=== PATIENT | female | born 1985 | race Caucasian/White ===

== ENCOUNTER 2017-10-16 08:00 | Emergency (ER) | payer OTHER ==
[2017-10-16] MEDS ORDERED: Pepcid 20 MG VIAL IV ONE ×2 (08:48→09:00)
[2017-10-16] MEDS ORDERED: Lactated Ringers 1,000 ML IV ONE ×2 (08:50→09:00)
[2017-10-16] MEDS ORDERED: Zyprexa Zydis 5 MG PO ONE ×2 (08:50→08:59)
[2017-10-16 08:58] LABS: BASOPHIL % 0.3 % (0.0-0.4); Basophil (Absolute #) 0.03 (0-0.4); Eosinophil % 2.3 % (0.00-5.0); Eosinophil (Absolute #) 0.22 (0-0.5); Granulocyte Absolute (ANC) 4.84 (1.4-6.9); Granulocytes % 50.5 % (36.0-66.0); Hematocrit 43.6 % (35-47); Hemoglobin 14.8 gm/dl (12.0-16.0); Lymphocytes % 39.6 % (24.0-44.0); Mean Cell Volume 87.4 fl (78-100); Mean Corpuscular Hemoglobin 29.7 pg (26-32); Mean Corpuscular Hgb Concent. 33.9 g/dl (32-36); Mean Platelet Volume 10.9 fl (6-9.5); Monocytes % 7.3 % (0.0-12.0); Platelet Count 269 K/mm3 (150-450); Red Blood Count 4.99 M/mm3 (4.1-5.4); Red Cell Distribution Width 12.4 % (11.5-14.0); White Blood Count 9.6 K/mm3 (4.0-10.5)
--- NOTE | 2017-10-16 09:13 | ERPHSYRPT ---
- History of Present Illness Time Seen by Provider: 10/16/17 08:28 Source: patient, family (boyfriend Mickey) Patient Subjective Stated Complaint: Pt states "I Have had abdominal pain for months. I hurt all over. I have had scans and they cannot find anything. I also have worms that come out of my eyes and my stomach was moving yesterday, I think I have a tapeworm." Triage Nursing Assessment: Pt alert and oriented X 3, skin pwd. PT ambulates with shakey legs, assisted by two people. Pt anxious, holding her abdomen. 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 She has abd pain, for one year. In past 1 day it is much worse. Diffuse. Diarrhea yesterday. No vomiting. No fever or chills. She has had menses for 2 months- took depo provera prior to that. Normal urination but intermittent UTI. She reports long hx of illness during the past 1 1/2 years. She has intermittent abd pain. She feels worms crawling in her abdomen. She has had worms come out of her eyes leaving red spots. She has intermittent weakness and can not walk at times. Sometimes her feet turn delaney. She has seen many providers. She has had many tests. She saw neurologist Dr Angel Perez who did EMG and CT scan. She saw Dr Nelson who did a breast biopsy. She saw psychiatry at [facility]. She saw a Gas Systems Worker. She has seen other doctors and has never gotten any answers. She feels like they don't listen to her. At one time she has low K and briefly took potassium tablets. She had prior BTL 10 years ago. She had a negative stool O&P. She had positive CECILIA. She had remote colonoscopy. She has intermittent blood in stools. She lives with boyfriend Mickey. She has 2 children at home she tries to care for ages 9, 10. Smoker. Surg: Colonoscopy, BTL ALL: Amoxil Timing/Duration: today, yesterday Severity: severe Allergies/Adverse Reactions: amoxicillin Allergy (Severe, Verified 10/16/17 08:19) Swelling Penicillins Allergy (Severe, Verified 10/16/17 08:18) Swelling Home Medications: No Reportable Medications [No Reported Medications] 03/16/18 [History] Hx Tetanus, Diphtheria Vaccination/Date Given: No Hx Influenza Vaccination/Date Given: No Hx Pneumococcal Vaccination/Date Given: No Immunizations Up to Date: Yes - Review of Systems Constitutional: Fatigue, Malaise, Weakness, Weight Loss, No Fever, No Chills Eyes: Other (worms crawls out of her eye), No Vision Changes Ears, Nose, & Throat: No Symptoms Respiratory: No Cough, No Dyspnea Cardiac: No Chest Pain Abdominal/Gastrointestinal: Abdominal Pain, Diarrhea (intermittent), No Vomiting Genitourinary Symptoms: Dysuria (frequent UTI), Vaginal Bleeding (2 months menses), Vaginal Itching (intermittent camilo), No Musculoskeletal: Back Pain Skin: Rash Neurological: Focal Weakness, Headache, Parasthesia Psychological: Anxiety All Other Systems: Reviewed and Negative - Past Medical History Neurological History: No Pertinent History ENT History: No Pertinent History Cardiac History: No Pertinent History Respiratory History: No Pertinent History Endocrine Medical History: No Pertinent History Musculoskeletal History: Fibromyalgia GI Medical History: No Pertinent History History: No Pertinent History Psycho-Social History: Anxiety, Depression, Panic Disorder Female Reproductive Disorders: No Pertinent History - Past Surgical History Past Surgical History: Yes Other Surgical History: tubal - Social History Smoking Status: Current every day smoker How long have you smoked: 2 years Exposure to second hand smoke: Yes Drug Use: none Patient Lives Alone: No (has not been able to work for 1 1/2 years) - Female History Hx Last Menstrual Period: bleeding for past 2 months Hx Now: (HCG pending) - Nursing Vital Signs Nursing Vital Signs: Initial Vital Signs Temperature 97.8 F 10/16/17 08:08 Pulse Rate 104 H 10/16/17 08:08 Respiratory Rate 18 10/16/17 08:08 Blood Pressure 138/88 10/16/17 08:08 O2 Sat by Pulse Oximetry 100 10/16/17 08:08 Pain Scale Pain Intensity 2 - Physical Exam General Appearance: alert Eye Exam: PERRL/EOMI Ears, Nose, Throat Exam: moist mucous membranes, No pharyngeal erythema Neck Exam: normal inspection, non-tender, supple Respiratory Exam: normal breath sounds, lungs clear Cardiovascular Exam: regular rate/rhythm, No murmur Gastrointestinal/Abdomen Exam: soft, tenderness (diffuse) Pelvic Exam: deferred Back Exam: normal inspection Extremity Exam: normal inspection, normal range of motion, No calf tenderness, No pedal edema Neurologic Exam: alert, oriented x 3, cooperative, manager ems II-XII nml as tested, sensation nml, other (intermittently tearful and anxious), No motor deficits Skin Exam: warm, dry, No rash SpO2 Interpretation: normal SpO2: 100 Oxygen Delivery: Room Air - Course Nursing assessment & vital signs reviewed: Yes - CT Exams abd/pelvis CT Interpretation: Negative (small umbilical hernia), Tele-radiologist Report Ordered Tests: Active Orders 24 hr Category Date Time Status Cath for Specimen-Straight STAT Care 10/16/17 08:49 Active IV Insertion STAT Care 10/16/17 08:48 Active ABDOMEN AND PELVIS W CONTRAST [CT] Stat Exams 10/16/17 08:49 Completed CBC W DIFF Stat Lab 10/16/17 08:10 Completed CMP Stat Lab 10/16/17 08:10 Completed CULTURE,URINE Stat Lab 10/16/17 08:49 Received HCG QUALITATIVE,SERUM Stat Lab 10/16/17 08:10 Completed LIPASE Stat Lab 10/16/17 08:10 Completed UA W/ MICROSCOPIC Stat Lab 10/16/17 08:49 Completed Urine Triage Profile Stat Lab 10/16/17 08:51 Completed Medication Summary Discontinued Medications Generic Name Dose Route Start Last Admin Trade Name Freq PRN Reason Stop Dose Admin Famotidine 20 mg 10/16/17 08:48 10/16/17 09:04 Pepcid 20 Mg Vial IV 10/16/17 08:49 20 mg STAT ONE Administration Famotidine Confirm 10/16/17 09:00 Pepcid 20 Mg Vial Administered 10/16/17 09:01 Dose 20 mg IV .STK-MED ONE Lactated Ringer's 1,000 mls @ 999 mls/hr 10/16/17 08:50 10/16/17 09:04 Lactated Ringers IV 10/16/17 09:50 999 mls/hr .Q1H1M ONE Administration Lactated Ringer's Confirm 10/16/17 09:00 Lactated Ringers Administered 10/16/17 09:01 Dose 1,000 mls @ ud IV .STK-MED ONE Olanzapine 5 mg 10/16/17 08:50 10/16/17 09:04 Zyprexa Zydis 5 Mg PO 10/16/17 08:51 5 mg STAT ONE Administration Olanzapine Confirm 10/16/17 08:59 Zyprexa Zydis 5 Mg Administered 10/16/17 09:00 Dose 5 mg PO .STK-MED ONE Lab/Rad Data: Laboratory Result Diagrams 10/16/17 08:10 10/16/17 08:10 Laboratory Results 10/16/17 10/16/17 10/16/17 Range/Units 08:51 08:49 08:10 WBC (4.0-10.5) K/mm3 RBC (4.1-5.4) M/mm3 Hgb (12.0-16.0) gm/dl Hct (35-47) % MCV (78-100) fl MCH (26-32) pg MCHC (32-36) g/dl RDW (11.5-14.0) % Plt Count (150-450) K/mm3 MPV (6-9.5) fl Gran % (36.0-66.0) % Lymphocytes % (24.0-44.0) % Monocytes % (0.0-12.0) % Eosinophils % (0.00-5.0) % Basophils % (0.0-0.4) % Basophils # (0-0.4) Sodium (137-145) mmol/L Potassium (3.5-5.1) mmol/L Chloride (98-107) mmol/L Carbon Dioxide (22-30) mmol/L Anion Gap (5-15) MEQ/L BUN (7-17) mg/dL Creatinine (0.52-1.04) mg/dL Estimated GFR ML/MIN Glucose (74-106) mg/dL Calcium (8.4-10.2) mg/dL Total Bilirubin (0.2-1.3) mg/dL AST (14-36) U/L ALT (0-35) U/L Alkaline Phosphatase (38-126) U/L Serum Total Protein (6.3-8.2) g/dL Albumin (3.5-5.0) g/dL Lipase (23-300) U/L Serum , Qual NEGATIVE (Negative) Ur Collection Type CATH Urine Color LT.YELLOW (YELLOW) Urine Appearance CLEAR (CLEAR) Urine pH 5.0 (5-6) Ur Specific [place] 1.020 (1.005-1.025) Urine Protein NEGATIVE (Negative) Urine Ketones SMALL-15 (NEGATIVE) Urine Blood TRACE HEMOLYZED (0-5) Jose R/ul Urine Nitrite NEGATIVE (NEGATIVE) Urine Bilirubin NEGATIVE (NEGATIVE) Urine Urobilinogen NORMAL (0-1) mg/dL Ur Leukocyte Esterase NEGATIVE (NEGATIVE) Urine Microscopic RBC 0-2 (0-2) /HPF Ur Epithelial Cells FEW (FEW) /HPF Urine Bacteria MODERATE (NEGATIVE) /HPF Urine Mucus SLIGHT (NEGATIVE) /HPF Urine Culture Reflexed YES (NO) Urine Glucose NEGATIVE (NEGATIVE) mg/dL Urine Opiates Level NEGATIVE (NEGATIVE) Ur Methadone NEGATIVE (NEGATIVE) Urine Barbiturates NEGATIVE (NEGATIVE) Ur Phencyclidine (PCP) NEGATIVE (NEGATIVE) Urine Amphetamine NEGATIVE (NEGATIVE) U Benzodiazepine Level NEGATIVE (NEGATIVE) Urine Cocaine NEGATIVE (NEGATIVE) Urine Marijuana (THC) NEGATIVE (NEGATIVE) Specimen Received 10/16/17 0910 10/16/17 10/16/17 Range/Units 08:10 08:10 WBC 9.6 (4.0-10.5) K/mm3 RBC 4.99 (4.1-5.4) M/mm3 Hgb 14.8 (12.0-16.0) gm/dl Hct 43.6 (35-47) % MCV 87.4 (78-100) fl MCH 29.7 (26-32) pg MCHC 33.9 (32-36) g/dl RDW 12.4 (11.5-14.0) % Plt Count 269 (150-450) K/mm3 MPV 10.9 H (6-9.5) fl Gran % 50.5 (36.0-66.0) % Lymphocytes % 39.6 (24.0-44.0) % Monocytes % 7.3 (0.0-12.0) % Eosinophils % 2.3 (0.00-5.0) % Basophils % 0.3 (0.0-0.4) % Basophils # 0.03 (0-0.4) Sodium 141 (137-145) mmol/L Potassium 3.3 L (3.5-5.1) mmol/L Chloride 105 (98-107) mmol/L Carbon Dioxide 21 L (22-30) mmol/L Anion Gap 17.7 H (5-15) MEQ/L BUN 7 (7-17) mg/dL Creatinine 0.67 (0.52-1.04) mg/dL Estimated GFR > 60 ML/MIN Glucose 83 (74-106) mg/dL Calcium 10.0 (8.4-10.2) mg/dL Total Bilirubin 0.70 (0.2-1.3) mg/dL AST 17 (14-36) U/L ALT 10 (0-35) U/L Alkaline Phosphatase 57 (38-126) U/L Serum Total Protein 7.9 (6.3-8.2) g/dL Albumin 4.8 (3.5-5.0) g/dL Lipase 96 (23-300) U/L Serum , Qual (Negative) Ur Collection Type Urine Color (YELLOW) Urine Appearance (CLEAR) Urine pH (5-6) Ur Specific [place] (1.005-1.025) Urine Protein (Negative) Urine Ketones (NEGATIVE) Urine Blood (0-5) Jose R/ul Urine Nitrite (NEGATIVE) Urine Bilirubin (NEGATIVE) Urine Urobilinogen (0-1) mg/dL Ur Leukocyte Esterase (NEGATIVE) Urine Microscopic RBC (0-2) /HPF Ur Epithelial Cells (FEW) /HPF Urine Bacteria (NEGATIVE) /HPF Urine Mucus (NEGATIVE) /HPF Urine Culture Reflexed (NO) Urine Glucose (NEGATIVE) mg/dL Urine Opiates Level (NEGATIVE) Ur Methadone (NEGATIVE) Urine Barbiturates (NEGATIVE) Ur Phencyclidine (PCP) (NEGATIVE) Urine Amphetamine (NEGATIVE) U Benzodiazepine Level (NEGATIVE) Urine Cocaine (NEGATIVE) Urine Marijuana (THC) (NEGATIVE) Specimen Received - Progress Progress Note: 10/16/17 09:16 Will proceed with abdominal pain workup. No prior CT scans on file. Discussed at length advice to follow up with primary physician, consider internal medicine consultation and psychiatric consultation to best get at the cause and treatment for her life altering difficulties. 10/16/17 11:44 Pt sleeping. No focal neuro deficits. She ambulated to well. Discussed test results. Advised she see Dr Oliveira to summarize prior workup and consider fast food team member and psychiatrist evaluation. Counseled pt/family regarding: lab results, diagnosis, need for follow-up, rad results - Departure Time of Disposition: 11:45 Departure Disposition: Home Clinical Impression: Abdominal pain Qualifiers: Abdominal location: generalized Qualified Code(s): R10.84 - Generalized abdominal pain Condition: Stable Critical Care Time: No Referrals: LINDSEY BAUER [Primary Care Provider] - FRANK OLIVEIRA [ACTIVE STAFF] - Instructions: Acute Abdomen (Belly Pain) Additional Instructions: ABDOMINAL PAIN 1. There are several different causes for abdominal pain, some of which may not be able to be identified on initial examination. 2. The important thing to remember is that bodily functions can change in a short period of time. If you notice any of the following symptoms, return to the emergency department or consult your doctor immediately: A. Worsening pain or no improvement in the next 12 hours. B. Increasing, severe abdominal pain C. Blood in stool D. Black stools E. Persistent vomiting F. Fever or chills or other symptoms Call to see Dr Oliveira for followup next week. Return for problems or concerns. No driving and stay with family today.
[2017-10-16 09:16] LABS: ALBUMIN 4.8 g/dL (3.5-5.0); ALKALINE PHOSPHATASE 57 U/L (38-126); ANION GAP 17.7 MEQ/L (5-15); BLOOD UREA NITROGEN 7 mg/dL (7-17); CHLORIDE 105 mmol/L (98-107); Carbon Dioxide 21 mmol/L (22-30); Creatinine 1 0.67 mg/dL (0.52-1.04); Glucose 83 mg/dL (74-106); LIPASE 96 U/L (23-300); Potassium 3.3 mmol/L (3.5-5.1); SGOT/AST 17 U/L (14-36); SGPT/ALT 10 U/L (0-35); SODIUM 141 mmol/L (137-145); Total Protein 7.9 g/dL (6.3-8.2)
[2017-10-16 09:17] LABS: Appearance CLEAR (CLEAR); Glucose NEGATIVE (NEGATIVE); Leukocyte Esterase NEGATIVE (NEGATIVE); Nitrite NEGATIVE (NEGATIVE); Protein,Urine Dip NEGATIVE (Negative)
[2017-10-16 09:18] LABS: Bilirubin NEGATIVE (NEGATIVE); Ketones SMALL-15 (NEGATIVE); Urobilinogen NORMAL mg/dL (0-1)
[2017-10-16 09:19] LABS: Bacteria MODERATE /HPF (NEGATIVE); Blood TRACE HEMOLYZED Ery/ul (0-5); Epithelial Cells FEW /HPF (FEW); Mucus SLIGHT /HPF (NEGATIVE)
[2017-10-16 09:47] LABS: Amphetamine,Urine NEGATIVE (NEGATIVE); Barbiturate,Urine NEGATIVE (NEGATIVE); Benzodiazepine,Urine NEGATIVE (NEGATIVE); Cocaine,Urine NEGATIVE (NEGATIVE); Methadone,Urine NEGATIVE (NEGATIVE); Opiate,Urine NEGATIVE (NEGATIVE); PCP,Urine NEGATIVE (NEGATIVE); THC,Urine NEGATIVE (NEGATIVE)
--- NOTE | 2017-10-16 11:25 | XRAY ---
Indication: Diffuse abdominal pain 1.5 years. Diarrhea and vaginal bleeding. Multiple contiguous axial images obtained through the abdomen and pelvis using 80 cc Isovue 370 contrast. Enteric contrast also given. Comparison: None Lung bases are clear. Heart is not enlarged. Contrasted stomach and bowel loops appear nonobstructed. Appendix not seen. No free fluid/air. Remaining liver, gallbladder, pancreas, spleen, adrenal glands, kidneys, ureters, bladder, uterus, and aorta appear normal in CT appearance and attenuation. No pathologic retroperitoneal lymphadenopathy. Osseous structures intact. Tiny fatty umbilical hernia. Impression: Tiny fatty umbilical hernia. Otherwise CT abdomen/pelvis with contrast exam is negative. CT DI 9.57
[2017-10-16 12:10] VITALS: BP 119/68; PULSE 94; O2SAT 97
== END 2017-10-16 12:10 | disposition home or self-care (01) ==
LOC: ED 08:00
DX: R10.84 Generalized abdominal pain (principal); R51 Headache; R53.83 Other fatigue; R19.7 Diarrhea, unspecified; R20.2 Paresthesia of skin; R63.4 Abnormal weight loss; R30.0 Dysuria; M54.9 Dorsalgia, unspecified; F41.9 Anxiety disorder, unspecified
CPT/HCPCS: 36000; 36415; 74177; 80053; 80307; 81000; 83690; 84703; 85025; 87086; 96360; 96374; 99284; P9612; A9270-GY